=== PATIENT | female | born 1980 | race American Indian/Alaskan Native ===

== ENCOUNTER 2018-06-10 03:28 | Inpatient (IN) | payer BC ==
[2018-06-10] MEDS ORDERED: SUBLIMAZE IV PRN (04:24)
[2018-06-10] MEDS ORDERED: STADOL IV PRN (04:24)
[2018-06-10] MEDS ORDERED: AMPICILLIN/NS 2 GM/100 ML 2 GM/100 ML BAG IV ONE (04:25)
[2018-06-10 04:48] LABS: Hematocrit 33.5 % (30.3-42.9); Hemoglobin 11.4 gm/dl (10.1-14.3); Mean Corpuscular HGB Conc 34 % (30-34); Mean Corpuscular Volume 94 fl (79-97); Red Blood Count 3.57 M/mm3 (3.65-5.03); Red Cell Distribution Width 15.7 % (13.2-15.2)
[2018-06-10] MEDS: LACTATED RINGERS 1,000 ML IV SCH ×2 (04:52→08:46)
[2018-06-10 05:31] LABS: Platelet Count 221 K/mm3 (140-440)
--- NOTE | 2018-06-10 08:07 | Anesthesia Consultation ---
Anesthesia Consult and Med Hx Date of service: 06/10/18 - Airway Anesthetic Teeth Evaluation: Good ROM Head & Neck: Adequate Mental/Hyoid Distance: Adequate Mallampati Class: Class II Intubation Access Assessment: Probably Good - Pre-Operative Health Status ASA Pre-Surgery Classification: ASA2 Proposed Anesthetic Plan: Epidural, Spinal - Pulmonary Hx Asthma: No COPD: No Hx Pneumonia: No - Cardiovascular System Hx Hypertension: No - Central Nervous System Hx Seizures: No Hx Psychiatric Problems: No - Endocrine Hx Renal Disease: No Hx End Stage Renal Disease: No Hx Hypothyroidism: No Hx Hyperthyroidism: No - Hematic Hx Anemia: Yes Hx Sickle Cell Disease: No - Other Systems Hx Alcohol Use: No
--- NOTE | 2018-06-10 08:18 | History and Physical Report ---
History of Present Illness Date of examination: 06/10/18 Date of admission: 06/10/18 03:58 Chief complaint: SROM History of present illness: Pt is a 37yo BF EDC 06/17/17; EGA 39 0/7 weeks presents to L&D complaining of SROM clear fluid @ 0200 followed by [facility]. She received care at [facility] since 14 weeks and co-managed by [facility] for AMA and GDM - diet controlled. records are available and GBS is Negative. Past History Past Medical History: diabetes (GDM) Past Surgical History: no surgical history Family/Genetic History: none Social history: no significant social history, - Obstetrical History Expected Date of Delivery: 06/17/18 Actual Gestation: 39 Week(s) 0 Day(s) : 3 Medications and Allergies Allergies Allergy/AdvReac Type Severity Reaction Status Date / Time ibuprofen AdvReac Bleeding Verified 06/10/18 03:42 Active Meds: Active Medications Butorphanol Tartrate (Stadol) 2 mg IV Q2H PRN PRN Reason: Labor Pain Last Admin: 06/10/18 07:20 Dose: 2 mg Documented by: Ephedrine Sulfate (Ephedrine Sulfate) 10 mg IV Q2M PRN PRN Reason: Hypotension Fentanyl (Sublimaze) 100 mcg IV Q2H PRN PRN Reason: Labor Pain Last Admin: 06/10/18 04:54 Dose: 100 mcg Documented by: Lactated Ringer's (Lactated Ringers) 1,000 mls @ 125 mls/hr IV DIRECT JOSE Last Admin: 06/10/18 04:52 Dose: 125 mls/hr Documented by: Ampicillin Sodium (Ampicillin/Ns 1 Gm/50 Ml) 1 gm in 50 mls @ 100 mls/hr IV Q4HR JOSE; Protocol Fentanyl/Bupivacaine/Sodium Chlor (Fentanyl-Bupiv 2 Mcg/Ml-0.125%) 200 mcg in 100 mls @ 12 mls/hr EPIDURAL TITR JOSE; Protocol Naloxone HCl (Narcan 2 Mg/2 Ml) 0.2 mg IV Q5M PRN PRN Reason: Respiratory sedation Review of Systems All systems: negative - Vital Signs Vital signs: Vital Signs Resp 18 06/10/18 04:54 Temp Pulse Resp BP Pulse Ox 96.7 F L 83 18 117/60 98 06/10/18 07:15 06/10/18 08:13 06/10/18 07:20 06/10/18 08:13 06/10/18 08:10 - Physical Exam Breasts: Positive: deferred Cardiovascular: Regular rate Lungs: Positive: Clear to auscultation Abdomen: Positive: normal appearance Genitourinary (Female): Positive: normal external genitalia Vagina: Positive: normal moisture Uterus: Positive: enlarged Extremities: Positive: normal - Obstetrical FHR: category 1 Uterine Contraction Monitor Mode: External Cervical Dilatation: 5 (per nurse) Cervical Effacement Percentage: 90 (per nurse) station: -2 Uterine Contraction Pattern: Regular Uterine Tone Measurement Phase: Contraction Uterine Contraction Intensity: Moderate Results Result Diagrams: 06/10/18 04:16 Abnormal lab results 06/10/18 Range/Units 04:16 RBC 3.57 L (3.65-5.03) M/mm3 RDW 15.7 H (13.2-15.2) % All other labs normal. Assessment and Plan - Patient Problems (1) 39 weeks gestation of Onset Date: 06/10/18 Current Visit: Yes Status: Acute Plan to address problem: A: IUP @ 39 0/7 weeks in labor GDM - stable P: Admit to L&D for expectant vaginal delivery Accuchecks (2) GDM (gestational diabetes mellitus) Onset Date: 06/10/18 Current Visit: Yes Status: Acute Qualifiers: Gestational diabetes mellitus control: diet-controlled Trimester: third trimester Qualified Code(s): O24.410 - Gestational diabetes mellitus in p regnancy, diet controlled
[2018-06-10] MEDS ORDERED: AMPICILLIN/NS 1 GM/50 ML 1 GM/50 ML BAG IV SCH (08:30)
[2018-06-10] MEDS ORDERED: PITOCin/NS 30 UNIT/500ML 30 UNITS/500 ML BAG IV SCH ×2 (09:00→11:00)
[2018-06-10] MEDS ORDERED: fentaNYL-BUPIV 2 MCG/ML-0.125% 200 MCG/100 ML BAG EPIDURAL SCH (09:00)
[2018-06-10] MEDS ORDERED: NARCAN 2 MG/2 ML IV PRN (09:00)
[2018-06-10] MEDS ORDERED: XYLOCAINE 2% INFILTRATI ONE (10:36)
[2018-06-10] MEDS ORDERED: BRETHINE IVP PRN (10:36)
[2018-06-10] MEDS ORDERED: MINERAL OIL PO PRN (10:36)
[2018-06-10] MEDS ORDERED: BRETHINE SUB-Q PRN (10:36)
[2018-06-10] MEDS ORDERED: ZOFRAN IV PRN (10:41)
[2018-06-10] MEDS ORDERED: MILK OF MAGNESIA PO PRN (10:41)
[2018-06-10] MEDS ORDERED: DULCOLAX PR PRN (10:41)
[2018-06-10] MEDS ORDERED: TYLENOL PO PRN (10:41)
[2018-06-10] MEDS ORDERED: LANSINOH TP PRN (10:41)
[2018-06-10] MEDS ORDERED: PHENERGAN PR PRN (10:41)
[2018-06-10] MEDS ORDERED: PHENERGAN PO PRN (10:41)
[2018-06-10] MEDS ORDERED: TUCKS PAD TP PRN (10:41)
[2018-06-10] MEDS ORDERED: BENADRYL PO PRN (10:41)
--- NOTE | 2018-06-10 10:55 | Procedure Note ---
OB Delivery Note - Delivery Date of Delivery: 06/10/18 Surgeon: MARIE THOMPSON Estimated blood loss: 200cc - Vaginal Delivery presentation: vertex Delivery position: OA Intrapartum events: none Delivery induction: none Delivery augmentation: rupture of membranes, pitocin Delivery monitor: external FHT, external uterine Route of delivery: Delivery placenta: spontaneous Delivery cord: 3 umbilical vessels Episiotomy: none Delivery laceration: 2nd degree (perineal) Delivery repair: vicryl Anesthesia: epidural Delivery comments: delivered OA and placed on Mom's chest for [id number] bonding and delayed cord clamping, cut by Dad - Infant A at 1 minute: 8 at 5 minutes: 9 Gender: Female (3264gms)
[2018-06-10] MEDS ORDERED: PITOCin/NS 20 UNIT/1000ML DRIP 20 UNITS/1,000 ML BAG IV SCH ×3 (11:00)
[2018-06-10] MEDS ORDERED: LACTATED RINGERS 1,000 ML IV SCH (11:00)
[2018-06-10] MEDS ORDERED: SODIUM CHLORIDE FLUSH SYRINGE 10 ML IV SCH (11:00)
[2018-06-10] MEDS: COLACE PO SCH (15:52)
[2018-06-10] MEDS: SENOKOT S PO SCH (15:53)
[2018-06-10] MEDS: NORCO 5/325 PO PRN (15:53)
[2018-06-11 00:31] LABS: Hematocrit 30.8 % (30.3-42.9); Hemoglobin 10.2 gm/dl (10.1-14.3)
[2018-06-11] MEDS: SENOKOT S PO SCH ×3 (00:39→21:53)
[2018-06-11] MEDS: NORCO 5/325 PO PRN ×2 (00:39→06:40)
[2018-06-11] MEDS: FEOSOL PO SCH ×3 (00:39→21:52)
[2018-06-11] MEDS ORDERED: BOOSTRIX IM ONE (06:00)
--- NOTE | 2018-06-11 08:26 | Progress Note ---
Assessment and Plan - Patient Problems (1) 39 weeks gestation of Onset Date: 06/10/18 Current Visit: Yes Status: Resolved (2) GDM (gestational diabetes mellitus) Onset Date: 06/10/18 Current Visit: Yes Status: Resolved Qualifiers: Gestational diabetes mellitus control: diet-controlled Trimester: third trimester Qualified Code(s): O24.410 - Gestational diabetes mellitus in , diet controlled (3) (normal spontaneous vaginal delivery) Onset Date: 06/11/18 Current Visit: Yes Status: Resolved Plan to address problem: A: S/P - PPD #1 Doing well GDM - stable P: May go home tomorrow. Subjective - Subjective Date of service: 06/11/18 Principal diagnosis: s/p - PPD #1 Interval history: Pt is feeling well except complaints of pain at vaginal laceration site repair. Bleeding improved Patient reports: appetite normal, voiding normally, pain well controlled, flatus, ambulating normally, no dizzy ambulation, no nauseated : doing well, nursing well, bottle feeding Objective - Vital Signs Latest vital signs: Vital Signs Temp Pulse Resp BP BP Pulse Ox 06/11/18 01:00 98.5 F 69 18 95/58 06/10/18 20:00 98.4 F 71 18 95/55 06/10/18 15:53 18 06/10/18 11:41 67 103/51 06/10/18 11:30 86 92/50 06/10/18 11:24 74 103/55 06/10/18 11:19 64 100/58 06/10/18 11:15 74 111/58 06/10/18 11:10 71 110/59 06/10/18 11:04 68 107/62 06/10/18 11:01 82 107/59 06/10/18 10:50 74 107/59 06/10/18 10:48 74 98 06/10/18 10:44 82 111/65 06/10/18 10:43 69 98 06/10/18 10:42 55 L 83 L 06/10/18 10:40 79 104/58 06/10/18 10:38 74 97 06/10/18 10:34 80 108/61 06/10/18 10:33 77 98 06/10/18 10:30 82 103/58 06/10/18 10:28 85 99 06/10/18 10:23 89 100 06/10/18 10:19 93 H 128/81 06/10/18 10:18 91 H 99 06/10/18 10:13 80 99 06/10/18 10:08 93 H 100 06/10/18 10:03 87 98 06/10/18 09:58 82 99 06/10/18 09:53 94 H 98 06/10/18 09:50 78 111/62 06/10/18 09:48 82 100 06/10/18 09:43 71 98 06/10/18 09:38 88 96 06/10/18 09:33 74 97 06/10/18 09:28 73 99 06/10/18 09:23 75 97 06/10/18 09:18 78 127/59 100 06/10/18 09:15 72 120/58 06/10/18 09:13 87 98 06/10/18 09:08 74 113/61 99 06/10/18 09:05 88 119/64 06/10/18 09:03 80 97 06/10/18 08:58 78 130/59 98 06/10/18 08:53 84 97 06/10/18 08:48 80 107/58 98 06/10/18 08:46 79 94 06/10/18 08:43 79 119/58 95 06/10/18 08:40 81 94 06/10/18 08:38 79 111/59 96 06/10/18 08:34 81 94 06/10/18 08:33 84 92/55 95 06/10/18 08:28 85 93 06/10/18 08:27 86 112/59 Intake and Output 06/10/18 06/11/18 06/11/18 22:59 06:59 14:59 Intake Total 480 Output Total 700 1600 Balance -700 -1120 Intake: Intake, Free Water 480 Output: Urine 700 1600 Void 700 1600 Other: Total, Output Amount 700 800 # Voids Void 1 1 - Exam Breasts: Present: deferred Abdomen: Present: normal appearance, soft Uterus: Present: normal, firm, fundal height below umbilicus Extremities: Present: normal - Labs Labs: Laboratory Tests 06/10/18 06/10/18 06/10/18 04:16 04:16 04:16 WBC 7.3 RBC 3.57 L Hgb 11.4 Hct 33.5 MCV 94 MCH 32 MCHC 34 RDW 15.7 H Plt Count 221 POC Glucose RPR Nonreactive Rubella IgG Antibody Blood Type O POSITIVE Antibody Screen Negative 06/10/18 06/10/18 06/10/18 07:41 23:51 23:51 WBC RBC Hgb 10.2 Hct 30.8 MCV MCH MCHC RDW Plt Count POC Glucose 73 RPR Rubella IgG Antibody Immune Blood Type Antibody Screen
--- NOTE | 2018-06-11 09:28 | Discharge Summary ---
Providers - Providers Date of Admission: 06/10/18 03:58 Date of discharge: 06/12/18 Attending physician: MARIE THOMPSON Primary care physician: MARIE THOMPSON Hospitalization Reason for admission: active labor, rupture of membranes, IUP at term Delivery: Episiotomy: none Laceration: 2nd degree (perineal) Other procedures: none complications: none Discharge diagnosis: IUP at term delivered baby: female Hospital course: Unremarkable. Condition at discharge: Good Disposition: DC-01 TO HOME OR SELFCARE - Discharge Diagnoses (1) 39 weeks gestation of Status: Resolved (2) GDM (gestational diabetes mellitus) Status: Resolved Qualifiers: Gestational diabetes mellitus control: diet-controlled Trimester: third trimester Qualified Code(s): O24.410 - Gestational diabetes mellitus in , diet controlled (3) (normal spontaneous vaginal delivery) Status: Resolved Plan - Discharge Medications Prescriptions: Acetaminophen [Acetaminophen TAB] 650 mg PO Q4H PRN #30 tablet PRN Reason: Pain MILD(1-3)/Fever >100.5/DENSON Ferrous Sulfate [Feosol 325 MG tab] 325 mg PO BID #60 tablet Vit-Fe Fumar-FA [ Vitamin] 1 each PO QDAY #30 tablet - Provider Discharge Summary Activity: routine, no sex for 6 weeks, no heavy lifting 4 weeks, no strenuous exercise Diet: routine Instructions: routine Additional instructions: [] Smoking cessation referral if applicable(refer to patient education folder for contact #) [] Refer to [facility] Booklet Call your doctor immediately for: * Fever > 100.5 * Heavy vaginal bleeding ( >1 pad per hour) * Severe persistent headache * Shortness of breath * Reddened, hot, painful area to leg or breast * Drainage or odor from incision. * Keep incision clean and dry at all times and follow doctor's instructions regarding bathing/showering - Follow up plan Follow up: MARIE THOMPSON MD [Primary Care Provider] - 6 Weeks Forms: [facility] Discharge Summary, Discharge Signature Page
[2018-06-11] MEDS ORDERED: M-M-R II VACCINE SUB-Q ONE (10:41)
[2018-06-11] MEDS: PRENATAL VITAMIN PO SCH (11:03)
[2018-06-11] MEDS: DERMOPLAST TP PRN (11:03)
[2018-06-11] MEDS: COLACE PO SCH ×2 (11:03→21:53)
[2018-06-12] MEDS: FEOSOL PO SCH (09:59)
[2018-06-12] MEDS: DERMOPLAST TP PRN (09:59)
[2018-06-12] MEDS: PRENATAL VITAMIN PO SCH (10:00)
[2018-06-12] MEDS: SENOKOT S PO SCH (10:00)
[2018-06-12] MEDS: COLACE PO SCH (10:00)
[2018-06-12] MEDS: NORCO 5/325 PO PRN (15:32)
[2018-06-12 16:23] VITALS: BP 107/64
== END 2018-06-12 18:34 | disposition home or self-care (01) | DRG 807 ==
LOC: TRG 03:28 → LD 03:58 → OB 14:43
PROVIDERS: ADMIT Obstetrics & Gynecology; ATTEND Obstetrics & Gynecology
PROC: 10E0XZZ Delivery of Products of Conception, External Approach (ICD-10-PCS; principal; 2018-06-10)
PROC: 0KQM0ZZ Repair Perineum Muscle, Open Approach (ICD-10-PCS; 2018-06-10)
PROC: 3E0R3BZ Introduction of Anesthetic Agent into Spinal Canal, Percutaneous Approach (ICD-10-PCS; 2018-06-10)
PROC: 00HU33Z Insertion of Infusion Device into Spinal Canal, Percutaneous Approach (ICD-10-PCS; 2018-06-10)
PROC: 3E0234Z Introduction of Serum, Toxoid and Vaccine into Muscle, Percutaneous Approach (ICD-10-PCS; 2018-06-11)
DX: O24.410 Gestational diabetes mellitus in pregnancy, diet controlled (principal); Z37.0 Single live birth; Z3A.39 39 weeks gestation of pregnancy; Z23 Encounter for immunization; O70.1 Second degree perineal laceration during delivery
CPT/HCPCS: 36415; 82962; 85014; 85018; 85027; 86592; 86762; 86850; 86900; 86901; G0378; A6250; J0290; J0595; J2590; J3010; J7120